=== PATIENT | male | born 1990 | race Caucasian/White ===

== ENCOUNTER 2016-11-11 16:30 | Emergency (ER) | payer OTHER ==
[~2016-11-11] VITALS: Ht 175.3 cm; Wt 80.0 kg
[~2016-11-11 16:30] MED LIST: METH10TA PO; VALI10TA PO
[2016-11-11] MEDS ORDERED: TETANUS/DIPHTHERIA TOXOID ADULT 0.5 ML VIAL IM ONE (16:45)
[2016-11-11] MEDS ORDERED: AMPICILLIN-SULBACTAM INJ 3 GM in SODIUM CHLORIDE 0.9% INJ 100 ML IV ONE (16:45)
[2016-11-11] MEDS ORDERED: LIDOCAINE 1%/EPINEPHrine 1:100,000 SOLN 20 ML VIAL INFIL ONE (16:45)
--- NOTE | 2016-11-11 16:45 | PD ---
HPI Chief Complaint: dog bite Time Seen by Provider: 16:45 Travel History International Travel<30 days: No Contact w/Intl Traveler<30days: No History of Present Illness HPI 26-year-old male presents to the emergency department in police custody for evaluation of dog bites to his right calf, left arm that occurred just prior to arrival. Apparently, the patient was running from the police when the canine dog was released and bit the patient. He does report a history of seizures. He is currently on clonazepam, diazepam, Dilantin and Topamax. The patient reports pain to the right lower leg, left arm. He states his tetanus immunization is not up-to-date. Patient denies any other complaints at this time. [facility] Past Medical History Diminished Hearing: No Past Surgical History Neurologic Surgery: Yes Social History Alcohol Use: Yes Tobacco Use: No Substance Use: No Allergies-Medications (Allergen,Severity, Reaction): Coded Allergies: Tylenol (Verified Allergy, Severe, HIVES, 07/23/15) Reported Meds & Prescriptions Reported Meds & Active Scripts Active Augmentin (Amoxicillin-Clavulanate) 875-125 Mg Tab 1 Tab PO BID 10 Days Reported Topamax (Topiramate) 50 Mg Tab 150 Mg PO DAILY Dilantin (Phenytoin Extended) 100 Mg Cap 300 Mg PO BID NEB Diazepam 10 Mg Tab 10 Mg PO BID PRN Clonazepam 2 Mg Tab 2 Mg PO BID Review of Systems Except as stated in HPI: all other systems reviewed are Neg Physical Exam Narrative GENERAL: Well-nourished, well-developed male patient, afebrile. SKIN: Focused skin assessment warm/dry. Patient has multiple lacerations and puncture wounds to the right calf, left arm. HEAD: Normocephalic. Atraumatic. EYES: No scleral icterus. No injection or drainage. NECK: Supple, trachea midline. No JVD or lymphadenopathy. CARDIOVASCULAR: Regular rate and rhythm without murmurs, gallops, or rubs. Bilateral radial and pedal pulses are 2+. RESPIRATORY: Breath sounds equal bilaterally. No accessory muscle use. Lungs sounds are clear to auscultation. GASTROINTESTINAL: Abdomen soft, non-tender, nondistended. MUSCULOSKELETAL: No cyanosis, or edema. Patient has full range of motion of all joints. BACK: Nontender without obvious deformity. No CVA tenderness. Data Data Last Documented VS Vital Signs Date Time Temp Pulse Resp B/P Pulse Ox O2 Delivery O2 Flow Rate FiO2 11/11/16 17:23 98.3 82 18 121/80 95 Room Air Orders Iv Access Insert/Monitor (11/11/16 16:43) Tetanus/Diphtheria Tox Adult (Tetanus/Di (11/11/16 16:45) Lidocai-Epi 1%-1:100,000 Inj (Xylocaine- (11/11/16 16:45) Ampicillin-Sulbactam Inj (Unasyn Inj) (11/11/16 16:45) Tibia/Fibula (Ap/Lat) (11/11/16 ) Humerus (Min 2vws) (11/11/16 ) Forearm (2vws) (11/11/16 ) MDM Medical Decision Making Medical Screen Exam Complete: Yes Emergency Medical Condition: Yes Medical Record Reviewed: Yes Interpretation(s) Last Impressions Tibia/Fibula X-Ray 11/11/16 0000 Signed Impressions: Service Date/Time: Friday, November 11, 2016 18:23 - CONCLUSION: 1. Soft tissue laceration medially along the upper leg. 2. Rounded BB along the proximal leg lateral to the fibula. Leoncio Akins MD Radius/Ulna X-Ray 11/11/16 0000 Signed Impressions: Service Date/Time: Friday, November 11, 2016 18:16 - CONCLUSION: Soft tissue swelling without fracture. No radiopaque foreign body. Leoncio Akins MD Humerus X-Ray 11/11/16 0000 Signed Impressions: Service Date/Time: Friday, November 11, 2016 18:19 - CONCLUSION: Soft tissue swelling without fracture. Leoncio Akins MD Differential Diagnosis Laceration versus puncture wound versus opiate versus foreign body versus open fracture Narrative Course 26 year old male presents to the emergency department in police custody for evaluation after he was bit by the police dog after he ran from the police. Tetanus immunization is updated. X-ray right tibia/fibula shows soft tissue swelling, no fracture, no foreign body other than a rounded BB which is not from the current incident. X-ray left humerus shows soft tissue swelling without fracture. X-ray left forearm shows soft tissue swelling without fracture, no radiopaque foreign body. Lacerations are repaired. Patient is given Unasyn 3 g IV. Patient is instructed on proper wound care. He will be discharged with a prescription for Augmentin. He is to return for any acute worsening of symptoms. Procedures Procedure Narrative LACERATION LOCATION: Multiple puncture wounds and lacerations to the right lower leg NUMBER OF STITCHES/ABEBE: 6 abebe and 3 simple sutures REPAIR: The area of the laceration was prepped with Betadine and sterilely draped. The laceration was infiltrated with 1% lidocaine with epinephrine. The wound was copiously irrigated and explored without evidence of foreign body, tendon injury or neurovascular injury. The wound was closed using abebe and 4- 0 Prolene. This was a single layer repair. A sterile dressing was applied. The patient was advised to keep the dressing clean and dry. Patient tolerated the procedure well. LACERATION LOCATION: Multiple puncture wounds and lacerations to the left arm NUMBER OF STITCHES/ABEBE: 3 abebe REPAIR: The area of the laceration was prepped with Betadine and sterilely draped. The laceration was infiltrated with 1% lidocaine with epinephrine. The wound was copiously irrigated and explored without evidence of foreign body, tendon injury or neurovascular injury. The wound was closed using abebe. This was a single layer repair. A sterile dressing was applied. The patient was advised to keep the dressing clean and dry. Patient tolerated the procedure well. Diagnosis Primary Impression: Dog bite of calf Qualified Code: S81.851A - Dog bite of calf, right, initial encounter Additional Impression: Dog bite of left arm Qualified Code: S41.152A - Dog bite of left arm, initial encounter Referrals: Primary Care Physician call for appointment Patient Instructions: Animal Bite (ED), General Instructions Additional Instructions: Clean lacerations twice daily with soap and water and apply [id number] antibiotic ointment. Keep lacerations clean and dry. No hot tubs or swimming. Take antibiotic as directed until gone. Suture removal in 10-14 days. UA follow with her primary care physician or return to the emergency department for this. Return to the emergency department for any acute worsening of symptoms. Med/Other Pt SpecificInfo: Prescription(s) given Scripts Amoxicillin-Clavulanate (Augmentin)875-125 Mg Tab1 Tab PO BID 10 Days Ref 0 Prov:Shital Valencia 11/11/16 Disposition: [address] LAW ENFORCEMNT Condition: Stable Shital Valencia Nov 11, 2016 16:45
[2016-11-11 16:58] VITALS: BP 121/60; PULSE 87; RESP 20; TEMP 98.2; O2SAT 94
[2016-11-11] MEDS ORDERED: DIAZ10TA PO (17:16)
[2016-11-11] MEDS ORDERED: CLON2TAB PO (17:16)
[2016-11-11] MEDS ORDERED: DILA100C PO (17:19)
[2016-11-11] MEDS ORDERED: TOPA50TA7 PO (17:19)
[2016-11-11 17:23] VITALS: BP 121/80; PULSE 82; RESP 18; TEMP 98.3; O2SAT 95
--- NOTE | 2016-11-11 18:33 | RADRPT ---
EXAM DATE/TIME: 11/11/2016 18:19 [facility] COMPARISON: No previous studies available for comparison. INDICATIONS : Evaluate left humerus for foreign body, dog bite MEDICAL HISTORY : None. SURGICAL HISTORY : None. ENCOUNTER: Initial ACUITY: 1 day PAIN SCORE: 8/10 LOCATION: Left Humerus FINDINGS: Two view examination of the left humerus demonstrates no evidence of fracture or dislocation. Bony m ineralization is normal. Soft tissue swelling without foreign body. CONCLUSION: Soft tissue swelling without fracture. Leoncio Akins MD on November 11, 2016 at 18:31 Board Certified Radiologist. This report was verified electronically.
--- NOTE | 2016-11-11 18:33 | RADRPT ---
EXAM DATE/TIME: 11/11/2016 18:16 [facility] COMPARISON: No previous studies available for comparison. INDICATIONS : Evaluate left forearm for forgein body, dog bite MEDICAL HISTORY : None. SURGICAL HISTORY : None. ENCOUNTER: Initial ACUITY: 1 day PAIN SCORE: 8/10 LOCATION: Left Forearm FINDINGS: Two view examination of the left forearm demonstrates no evidence of fracture or dislocation. Bony m ineralization is normal. Soft tissue swelling. CONCLUSION: Soft tissue swelling without fracture. No radiopaque foreign body. Leoncio Akins MD on November 11, 2016 at 18:31 Board Certified Radiologist. This report was verified electronically.
--- NOTE | 2016-11-11 18:34 | RADRPT ---
EXAM DATE/TIME: 11/11/2016 18:23 [facility] COMPARISON: No previous studies available for comparison. INDICATIONS : Evaluate right tibia for foreign body, dog bite MEDICAL HISTORY : None. SURGICAL HISTORY : None. ENCOUNTER: Initial ACUITY: 1 day PAIN SCORE: 8/10 LOCATION: Right Tibia FINDINGS: Two view examination of the right tibia demonstrates no evidence of fracture or dislocation. Bony mi neralization is normal. Soft tissue laceration. There is a round circular metallic density lateral to the fibula proximally. CONCLUSION: 1. Soft tissue laceration medially along the upper leg. 2. Rounded BB along the proximal leg lateral to the fibula. Leoncio Akins MD on November 11, 2016 at 18:32 Board Certified Radiologist. This report was verified electronically.
[2016-11-11] MEDS ORDERED: AUGM875T3 PO (19:35)
== END 2016-11-11 20:11 ==
LOC: NEPD 16:30
DX: S81.851A Open bite, right lower leg, initial encounter (principal); S41.152A Open bite of left upper arm, initial encounter; W54.0XXA Bitten by dog, initial encounter; Z23 Encounter for immunization
CPT/HCPCS: 12005; 73060; 73090; 73590; 90471; 90714; 96365; 96366; 99284; J0295